=== PATIENT | female | born 1945 | race Caucasian/White ===

== ENCOUNTER 2020-10-09 23:22 | Emergency (ER) | payer MEDICARE ==
[~2020-10-09] VITALS: Ht 162.6 cm; Wt 61.0 kg
[~2020-10-09 23:22] MED LIST: ATIVAN0.5 MG PO; BENADRYL25 MG PO; CRESTOR10 MG PO; FOSAMAX70 MG OR; LORTAB 5 OR; REMERON15 MG OR; TRIAM/HCTZ1 CAP PO
[2020-10-10 00:01] LABS: HEMATOCRIT 44.2 % (37.0-47.0); HEMOGLOBIN 14.3 g/dl (12.0-16.0); IMMATURE GRANULOCYTES 0.3 % (0.0-5.0); MEAN CELL VOLUME 87.7 fL CALC (80.0-100.0); MEAN CORPUSCULAR HGB 28.4 pG CALC (26.0-32.0); MEAN CORPUSCULAR HGB CONC 32.4 g/dL CAL (32.0-36.0); NEUT# 7.07 thou/uL (2.00-7.15); RED BLOOD COUNT 5.04 mill/uL (4.20-5.60); RED CELL DISTRI WIDTH 12.7 % (11.5-15.5)
[2020-10-10 00:12] LABS: URINE BILIRUBIN - DIPSTICK NEGATIVE (NEGATIVE); URINE COLOR YELLOW; URINE GLUCOSE - DIPSTICK NEGATIVE (NEGATIVE); URINE KETONE NEGATIVE (NEGATIVE); URINE PROTEIN - DIPSTICK NEGATIVE (NEG-TRACE); URINE SPECIFIC GRAVITY 1.015; URINE UROBILINOGEN - DIPSTICK 0.2 E.U./dL (0.2)
[2020-10-10 00:13] LABS: URINE BLOOD DIPSTICK NEGATIVE (NEGATIVE); URINE EPITHELIAL CELLS FEW EPI/hpf (0-FEW); URINE LEUK ESTERASE SMALL (NEGATIVE); URINE NITRITE - DIPSTICK NEGATIVE (Negative)
[2020-10-10 00:14] LABS: URINE BACTERIA FEW hpf
[2020-10-10 00:25] LABS: ALBUMIN 4.7 g/dL (3.2-5.0); ALKALINE PHOSPHATASE 107 u/l (38-126); ANION GAP 17 (6-22 (CALC)); BILIRUBIN, TOTAL 0.5 mg/dL (0.0-1.4); BUN 17 mg/dL (8-23); BUN/CREATININE RATIO 20 (12-20 (CALC)); CARBON DIOXIDE 26 mmol/l (22-30); CHLORIDE 94 mmol/l (95-108); CREATININE 0.9 mg/dL (0.5-1.0); GFR > 60 ML/MIN (>=60 (CALC)); GFR FOR AFR.AMER. > 60 ML/MIN (>=60 (CALC)); POTASSIUM 3.5 mmol/l (3.5-5.1); SGOT/AST 34 u/l (9-36); SODIUM 133 mmol/l (137-146); TOTAL PROTEIN 8.4 g/dL (6.3-8.2)
[2020-10-10] MEDS ORDERED: MAXZIDE-2537.5 MG/TA PO (00:27)
[2020-10-10] MEDS ORDERED: KLOR-CON M1010 MEQ PO (00:30)
[2020-10-10] MEDS ORDERED: [UNRECOGNIZED DRUG - OTHER] (00:31)
[2020-10-10] MEDS ORDERED: ATENOLOL25 MG PO (00:32)
[2020-10-10] MEDS ORDERED: MIRTAZAPINE30 M1 PO (00:32)
[2020-10-10] MEDS ORDERED: TEMAZEPAM15 MG PO (00:33)
[2020-10-10 00:34] LABS: MYOGLOBIN 37 ng/mL (0 - 62)
[2020-10-10] MEDS ORDERED: CIPROFLOXACN500 MG PO (00:51)
[2020-10-10 01:10] VITALS: BP 152/74
[2020-10-11] MEDS ORDERED: LORAZEPAM0.5 MG PO (02:55)
== END 2020-10-10 01:10 | disposition home or self-care (01) ==
LOC: ED 23:22
PROVIDERS: Emergency Medicine
DX: F41.9 Anxiety disorder, unspecified (principal); N39.0 Urinary tract infection, site not specified; I10 Essential (primary) hypertension; F32.9 Major depressive disorder, single episode, unspecified; E78.00 Pure hypercholesterolemia, unspecified; Z86.16 Personal history of COVID-19
CPT/HCPCS: J2060

== ENCOUNTER 2020-10-11 02:19 | Emergency (ER) | payer MEDICARE ==
[~2020-10-11] VITALS: Ht 162.6 cm; Wt 70.0 kg
[~2020-10-11 02:19] MED LIST changes: +ATENOLOL25 MG PO; +CIPROFLOXACN500 MG PO; +KLOR-CON M1010 MEQ PO; +MAXZIDE-2537.5 MG/TA PO; +MIRTAZAPINE30 M1 PO; +TEMAZEPAM15 MG PO; +[UNRECOGNIZED DRUG - OTHER]
[2020-10-11] MEDS ORDERED: LORAZEPAM0.5 MG PO (02:55)
[2020-10-11 03:42] VITALS: BP 156/95
== END 2020-10-11 03:50 | disposition home or self-care (01) ==
LOC: ED 02:19
DX: F41.9 Anxiety disorder, unspecified (principal); I10 Essential (primary) hypertension; F32.9 Major depressive disorder, single episode, unspecified; E78.00 Pure hypercholesterolemia, unspecified; Z86.16 Personal history of COVID-19
CPT/HCPCS: J2060

== ENCOUNTER 2020-12-17 22:34 | Observation (INO) | payer MEDICARE ==
[~2020-12-17] VITALS: Ht 162.6 cm; Wt 66.0 kg
[~2020-12-17 22:34] MED LIST changes: +LORAZEPAM0.5 MG PO
[2020-12-17 23:03] LABS: HEMOGLOBIN 12.7 g/dl (12.0-16.0); IMMATURE GRANULOCYTES 0.3 % (0.0-5.0); MEAN CELL VOLUME 88.2 fL CALC (80.0-100.0); MEAN CORPUSCULAR HGB 29.5 pG CALC (26.0-32.0); MEAN CORPUSCULAR HGB CONC 33.4 g/dL CAL (32.0-36.0); NEUT# 17.62 thou/uL (2.00-7.15); RED BLOOD COUNT 4.31 mill/uL (4.20-5.60); RED CELL DISTRI WIDTH 13.4 % (11.5-15.5)
[2020-12-17] MEDS ORDERED: RISPERDAL0.5 MG PO (23:10)
[2020-12-17 23:22] LABS: CREATININE 1.2 mg/dL (0.5-1.0); MAGNESIUM 1.1 mg/dL (1.6-2.3)
[2020-12-17 23:24] LABS: ALBUMIN 3.6 g/dL (3.2-5.0); BILIRUBIN, TOTAL 1.2 mg/dL (0.0-1.4); TOTAL PROTEIN 6.5 g/dL (6.3-8.2)
[2020-12-17 23:34] LABS: URINE BLOOD DIPSTICK NEGATIVE (NEGATIVE); URINE COLOR YELLOW; URINE GLUCOSE - DIPSTICK NEGATIVE (NEGATIVE); URINE KETONE NEGATIVE (NEGATIVE); URINE LEUK ESTERASE NEGATIVE (NEGATIVE); URINE PROTEIN - DIPSTICK TRACE mg/dL (NEG-TRACE)
[2020-12-17 23:44] LABS: URINE BILIRUBIN - DIPSTICK SMALL (NEGATIVE); URINE NITRITE - DIPSTICK NEGATIVE (Negative)
[2020-12-18 06:28] LABS: CREATININE 1.1 mg/dL (0.5-1.0); POTASSIUM 3.1 mmol/l (3.5-5.1)
[2020-12-18 06:45] VITALS: BP 92/66
[2020-12-18 06:54] LABS: MAGNESIUM 1.9 mg/dL (1.6-2.3)
[2020-12-18 15:25] VITALS: BP 99/66
[2020-12-18 19:00] VITALS: BP 112/70
[2020-12-19 05:26] VITALS: BP 134/89
[2020-12-19 05:53] LABS: HEMATOCRIT 36.3 % (37.0-47.0); HEMOGLOBIN 11.8 g/dl (12.0-16.0); MEAN CELL VOLUME 89.6 fL CALC (80.0-100.0); MEAN CORPUSCULAR HGB 29.1 pG CALC (26.0-32.0); MEAN CORPUSCULAR HGB CONC 32.5 g/dL CAL (32.0-36.0); RED BLOOD COUNT 4.05 mill/uL (4.20-5.60); RED CELL DISTRI WIDTH 13.7 % (11.5-15.5)
[2020-12-19 06:11] LABS: ANION GAP 14 (6-22 (CALC)); BUN 20 mg/dL (8-23); BUN/CREATININE RATIO 23 (12-20 (CALC)); CARBON DIOXIDE 22 mmol/l (22-30); CHLORIDE 101 mmol/l (95-108); CREATININE 0.9 mg/dL (0.5-1.0); GFR > 60 ML/MIN (>=60 (CALC)); GFR FOR AFR.AMER. > 60 ML/MIN (>=60 (CALC)); MAGNESIUM 1.8 mg/dL (1.6-2.3); POTASSIUM 3.6 mmol/l (3.5-5.1); SODIUM 134 mmol/l (137-146)
[2020-12-19 08:30] VITALS: BP 133/81
[2020-12-19 15:06] VITALS: BP 133/81
[2020-12-19 19:00] VITALS: BP 129/84
[2020-12-20 04:00] VITALS: BP 118/69
[2020-12-20 06:31] LABS: HEMATOCRIT 35.3 % (37.0-47.0); HEMOGLOBIN 11.4 g/dl (12.0-16.0); MEAN CELL VOLUME 89.8 fL CALC (80.0-100.0); MEAN CORPUSCULAR HGB CONC 32.3 g/dL CAL (32.0-36.0); RED BLOOD COUNT 3.93 mill/uL (4.20-5.60)
[2020-12-20 06:33] LABS: ANION GAP 13 (6-22 (CALC)); BUN 16 mg/dL (8-23); BUN/CREATININE RATIO 18 (12-20 (CALC)); CARBON DIOXIDE 22 mmol/l (22-30); CHLORIDE 101 mmol/l (95-108); CREATININE 0.9 mg/dL (0.5-1.0); GFR > 60 ML/MIN (>=60 (CALC)); GFR FOR AFR.AMER. > 60 ML/MIN (>=60 (CALC)); SODIUM 133 mmol/l (137-146)
[2020-12-20 08:00] VITALS: BP 115/73
[2020-12-20 15:00] VITALS: BP 126/73
[2020-12-20 19:00] VITALS: BP 122/75
[2020-12-20 20:35] VITALS: BP 128/74
[2020-12-21 04:00] VITALS: BP 146/84
[2020-12-21 06:42] LABS: ANION GAP 9 (6-22 (CALC)); BUN 12 mg/dL (8-23); BUN/CREATININE RATIO 15 (12-20 (CALC)); CARBON DIOXIDE 24 mmol/l (22-30); CHLORIDE 104 mmol/l (95-108); CREATININE 0.8 mg/dL (0.5-1.0); GFR > 60 ML/MIN (>=60 (CALC)); GFR FOR AFR.AMER. > 60 ML/MIN (>=60 (CALC)); MAGNESIUM 1.5 mg/dL (1.6-2.3); POTASSIUM 3.1 mmol/l (3.5-5.1); SODIUM 134 mmol/l (137-146)
[2020-12-21 06:44] LABS: HEMATOCRIT 33.8 % (37.0-47.0); HEMOGLOBIN 11.1 g/dl (12.0-16.0); MEAN CELL VOLUME 88.5 fL CALC (80.0-100.0); MEAN CORPUSCULAR HGB 29.1 pG CALC (26.0-32.0); MEAN CORPUSCULAR HGB CONC 32.8 g/dL CAL (32.0-36.0); RED BLOOD COUNT 3.82 mill/uL (4.20-5.60); RED CELL DISTRI WIDTH 14.3 % (11.5-15.5)
[2020-12-21] MEDS ORDERED: FIRVANQ25 MG/ML PO (11:31)
== END 2020-12-21 15:40 | disposition home or self-care (01) ==
LOC: ED 22:34 → MS2 12-18 00:12 → ED-I 12-18 00:12 → MS2 12-18 05:57
PROVIDERS: Family Medicine; Nurse Practitioner; ADMIT Hospitalist; ATTEND Hospitalist
DX: A04.72 Enterocolitis due to Clostridium difficile, not specified as recurrent (principal); N17.9 Acute kidney failure, unspecified; E83.42 Hypomagnesemia; E87.6 Hypokalemia; E78.5 Hyperlipidemia, unspecified; E86.0 Dehydration; I10 Essential (primary) hypertension; F32.9 Major depressive disorder, single episode, unspecified; F41.9 Anxiety disorder, unspecified; Z86.16 Personal history of COVID-19; Z20.822 Contact with and (suspected) exposure to COVID-19
CPT/HCPCS: G0378; J3475